=== PATIENT | male | born 1970 | race Caucasian/White ===

== ENCOUNTER 2018-10-28 07:47 | Day surgery (SDC) | payer BC ==
[2018-10-28] MEDS ORDERED: MIDAZOLAM 1 MG/ML 2 ML INJ ×2 (09:54)
[2018-10-28] MEDS ORDERED: MEPERIDINE 50 MG INJ (09:55)
== END 2018-10-28 13:36 | disposition home or self-care (01) ==
LOC: GIL 07:47
DX: Z12.11 Encounter for screening for malignant neoplasm of colon (principal); D12.4 Benign neoplasm of descending colon
CPT/HCPCS: 45380; 88305